=== PATIENT | male | born 1955 | race Caucasian/White ===

== ENCOUNTER 2016-07-14 13:35 | Emergency (ER) | payer BC ==
[2016-07-14 13:42] VITALS: BP 133/89; PULSE 65; TEMP 98.1; BMI 29.9
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
[2016-07-14] MEDS ORDERED: IBUPROFEN 400 MG TABLET (FP) PO ONE ×2 (14:10→14:18)
== END 2016-07-14 15:38 | disposition home or self-care (01) ==
LOC: FER 13:35
DX: S59.901A Unspecified injury of right elbow, initial encounter (principal); S50.01XA Contusion of right elbow, initial encounter; W22.09XA Striking against other stationary object, initial encounter; Y93.89 Activity, other specified; Y92.008 Other place in unspecified non-institutional (private) residence as the place of occurrence of the external cause; J30.2 Other seasonal allergic rhinitis; D64.9 Anemia, unspecified; Z85.828 Personal history of other malignant neoplasm of skin
CPT/HCPCS: 73070-TC-RT; 99282-25

== ENCOUNTER 2020-10-15 12:09 | Emergency (ER) | payer BC ==
[2020-10-15 12:22] VITALS: BMI 30.5
[2020-10-15] MEDS ORDERED: CASIRIVIMAB (REGN10933) 600 MG, IMDEVIMAB (REGN10987) 600 MG in SODIUM CHLORIDE 100 ML IVPB ONE (13:28)
[2020-10-15 19:34] VITALS: BP 110/68; PULSE 72; TEMP 98.6
== END 2020-10-15 19:00 | disposition home or self-care (01) ==
LOC: JCOVINFU 12:09
DX: U07.1 COVID-19 (principal)
CPT/HCPCS: 99284-25; M0243; Q0243